=== PATIENT | female | born 1995 | race Caucasian/White ===

== ENCOUNTER → 2020-11-02 | Outpatient (REF) | payer OTHER ==
[2020-11-02 18:17] LABS: HEMATOCRIT 37.6 % (36.0-47.0); HEMOGLOBIN 12.2 g/dl (12.0-15.5); MEAN CORPUSCULAR HEMOGLOBIN 29.1 pg (27.0-33.0); MEAN CORPUSCULAR HGB CONC 32.4 g/dl (32.0-36.5); MEAN CORPUSCULAR VOLUME 89.7 fl (80.0-96.0); PLATELET COUNT, AUTOMATED 242 10^3/uL (150-450); RED BLOOD COUNT 4.19 10^6/uL (4.00-5.40); WHITE BLOOD COUNT 7.5 10^3/uL (4.0-10.0)
[2020-11-02 18:33] LABS: GLUCOSE CHALLENGE TEST 1 HOUR 128 MG/DL (LESS THAN 140)
[2020-11-02 19:29] LABS: HEMOGLOBIN A1c 4.8 %
[2020-11-08 09:45] LABS: HIV 1&2 SCREEN CENTAUR REACTIVE (NEGATIVE)
== END ==
LOC: M PLALAB 13:33
PROVIDERS: ATTEND Advanced Practice Midwife
DX: Z34.91 Encounter for supervision of normal pregnancy, unspecified, first trimester (principal); Z3A.09 9 weeks gestation of pregnancy

== ENCOUNTER → 2020-11-11 | Outpatient (CLI) | payer OTHER | LOC: M PLALAB 14:10 | PROVIDERS: ATTEND Advanced Practice Midwife | DX: Z34.81 Encounter for supervision of other normal pregnancy, first trimester (principal) ==

== ENCOUNTER → 2021-01-20 | Outpatient (CLI) | payer OTHER ==
--- NOTE | 2021-01-20 10:03 | REP ---
INDICATION: ANATOMY. COMPARISON: None. TECHNIQUE: Multiple ultrasonographic images of the gravid uterus. FINDINGS: There is a single intrauterine gestation. position is variable. heart rate is 134 beats per minute. The placenta is anterior with grade 1 maturity. There is no previa. The umbilical cord inserts centrally onto the placenta. There is a three-vessel cord. The cervix measures 5.2 cm length. The composite ultrasound gestational age by the study today is 22 weeks 4 days with an BRENNEN of 05/22/2021. The LMP is unknown. weight is 510 g/1 lb, 1 oz. This is the 77th percentile for 21 weeks 6 days. The following anatomic structures are identified and are unremarkable: Cranium, cavum septum pellucidum, falx, as intracranial ventricles, choroid plexus, cerebellum, cisterna magna, nuchal fold, facial profile, orbits, upper lip, lungs, cardiac rhythm, four-chamber heart, cardiac right left ventricular outflow tracts, diaphragm, stomach, abdominal wall, right and left kidneys, bladder, spine, right and left upper extremities, right left lower extremities, 3 vessel cord. No anomalies are identified. IMPRESSION: Twenty-two week 4 day intrauterine gestation with an BRENNEN of 05/22/2021. No anomalies are identified <Electronically signed by Vladimir Hernandez > 01/20/21 [id number]
== END ==
LOC: M WHC 08:54
PROVIDERS: ATTEND Advanced Practice Midwife
DX: Z34.02 Encounter for supervision of normal first pregnancy, second trimester (principal); Z3A.22 22 weeks gestation of pregnancy

== ENCOUNTER → 2021-02-25 | Outpatient (CLI) | payer OTHER ==
[2021-02-25 10:25] LABS: HEMATOCRIT 37.1 % (36.0-47.0); HEMOGLOBIN 11.9 g/dl (12.0-15.5); MEAN CORPUSCULAR HEMOGLOBIN 28.1 pg (27.0-33.0); MEAN CORPUSCULAR HGB CONC 32.1 g/dl (32.0-36.5); MEAN CORPUSCULAR VOLUME 87.7 fl (80.0-96.0); PLATELET COUNT, AUTOMATED 313 10^3/uL (150-450); RED BLOOD COUNT 4.23 10^6/uL (4.00-5.40); WHITE BLOOD COUNT 12.9 10^3/uL (4.0-10.0)
[2021-02-25 12:33] LABS: GC DNA AMPLIFICATION NEGATIVE (NEGATIVE)
== END ==
LOC: M PLALAB 07:44
PROVIDERS: ATTEND Advanced Practice Midwife
DX: Z34.92 Encounter for supervision of normal pregnancy, unspecified, second trimester (principal); Z3A.22 22 weeks gestation of pregnancy
CPT/HCPCS: 36415; 82950; 85027; 86850; 86900; 86901; 87491; 87591; G0463

== ENCOUNTER → 2021-05-02 | Outpatient (REF) | payer OTHER ==
[~2021-05-02] MED LIST: IBUP80TA PO; OMEP40CA4 PO; OXYC1TAB23 PO; PRENTAB9 PO
== END ==
LOC: M SFHCWAGY 16:51
PROVIDERS: ATTEND Specialist
DX: Z36.85 Encounter for antenatal screening for Streptococcus B (principal); Z3A.00 Weeks of gestation of pregnancy not specified
CPT/HCPCS: 87081; G0463

== ENCOUNTER → 2021-05-06 | Outpatient (CLI) | payer OTHER ==
--- NOTE | 2021-05-06 11:19 | REP ---
INDICATION: GROWTH COMPARISON: 01/20/2021 TECHNIQUE: Transabdominal obstetrical ultrasound with color Doppler evaluation. FINDINGS: Examination demonstrates a single live intrauterine in cephalic presentation. motion is identified by technologist. Placenta is noted anterior and grade 3 without evidence for placenta previa or abruption. Amniotic fluid volume is normal. Cervix measures 4.4 cm in length and appears closed.. Selected gestational age: 37 weeks 0 days with BRENNEN 05/27/2021. Gestational age by current measurements 39 weeks 2 days with BRENNEN 05/11/2021. FHR equals 136 beats per minute. BPD: 9.7 cm at 39 weeks 6 days HC: 34.5 cm at 39 weeks 6 days AC: 36.2 cm at 40 weeks 0 days FL: 7.3 cm at 37 weeks 3 days HL: 6.8 cm at 39 weeks 2 days HC/AC: 0.95 Estimated weight 3804 grams (greater than 97thpercentile). LISA: 15.4 cm Umbilical artery SD ratio: 2.46 IMPRESSION: Single live intrauterine in cephalic presentation demonstrating greater than expected interval growth. <Electronically signed by Armando Baugh > 05/06/21 [id number]
== END ==
LOC: M WHC 10:21
PROVIDERS: ATTEND Specialist
DX: Z34.03 Encounter for supervision of normal first pregnancy, third trimester (principal); Z3A.37 37 weeks gestation of pregnancy

== ENCOUNTER 2021-05-18 07:20 | Outpatient (CLI) | payer OTHER ==
[~2021-05-18] VITALS: Ht 162.6 cm; Wt 125.1 kg
[2021-05-18 07:43] VITALS: BP 137/93
[2021-05-18 08:10] VITALS: BP 121/65
[2021-05-18 08:42] LABS: HEMATOCRIT 36.1 % (36.0-47.0); HEMOGLOBIN 11.4 g/dl (12.0-15.5); MEAN CORPUSCULAR HEMOGLOBIN 25.9 pg (27.0-33.0); MEAN CORPUSCULAR HGB CONC 31.6 g/dl (32.0-36.5); MEAN CORPUSCULAR VOLUME 81.9 fl (80.0-96.0); PLATELET COUNT, AUTOMATED 367 10^3/uL (150-450); RED BLOOD COUNT 4.41 10^6/uL (4.00-5.40); WHITE BLOOD COUNT 13.2 10^3/uL (4.0-10.0)
[2021-05-18] MEDS ORDERED: PRENTAB9 PO (08:47)
[2021-05-18 09:11] LABS: CREATININE,RANDOM URINE 47.2 MG/DL; TOTAL PROTEIN,RANDOM URINE 12.7 MG/DL (0.0-12.0)
[2021-05-18 09:11] LABS: ALT/SGPT 11 U/L (12-78); BILIRUBIN,TOTAL 0.2 MG/DL (0.2-1.0); CREATININE FOR GFR 0.74 MG/DL (0.55-1.30); GLOMERULAR FILTRATION RATE > 60.0 (>60); LDH LACTATE DEHYDROGENASE 125 U/L (84-246); URIC ACID 4.4 MG/DL (2.6-6.0)
== END 2021-05-18 09:32 | disposition home or self-care (01) ==
LOC: M LDO 07:20
PROVIDERS: ATTEND Specialist
DX: O26.893 Other specified pregnancy related conditions, third trimester (principal); O99.213 Obesity complicating pregnancy, third trimester; Z3A.38 38 weeks gestation of pregnancy; Z87.891 Personal history of nicotine dependence
CPT/HCPCS: 36415; 59025; 82247; 82565; 82570; 83615; 84156; 84450; 84460; 84550; 85027; G0378; G0463

== ENCOUNTER 2021-05-20 10:30 | Inpatient (IN) | payer OTHER ==
[~2021-05-20] VITALS: Ht 160 cm; Wt 125.6 kg
[2021-05-20] VITALS (8 sets, daily range): BP systolic 121–141; BP diastolic 62–86
[~2021-05-20 10:30] MED LIST changes: -IBUP80TA PO; -OMEP40CA4 PO; -OXYC1TAB23 PO
[2021-05-20] MEDS ORDERED: OMEP40CA4 PO (10:52)
[2021-05-20] MEDS ORDERED: HOME MED LIST COMPLETE! XX SCH (10:55)
[2021-05-20] MEDS ORDERED: LACTATED RINGER'S 1000 ML IV STA (11:28)
[2021-05-20] MEDS ORDERED: METHYLERGONOVINE MALEATE 0.2 MG/ML VIAL (J2210) IM PRN (11:30)
[2021-05-20] MEDS ORDERED: LIDOCAINE 1% MDV 20ML VIAL INFIL PRN (11:30)
[2021-05-20] MEDS ORDERED: OXYTOCIN DRIP 30 UNITS in IV 1 EA IV PRN (11:30)
--- NOTE | 2021-05-20 12:11 | HPEPDOC ---
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: Human papillomavirus(HPV) Past Medical History Surgical History: Tonsilectomy Family History Significant Family History: Cancer, Heart disease Social History Marital Status: Family situation: Spouse/partner home Psychosocial History: No pertinent psych hx * Smoker: current smoker (vape) Alcohol: Denies Drugs: denies Abuse Violence Screening Have you been hit/kicked/slapp: No Have you been sexually assault: No Imunizations Tdap status: current Allergies Coded Allergies: No Known Allergies (Unverified , 05/18/21) Medications Scheduled Omeprazole (Omeprazole) 40 Mg Capsule.dr, 1 CAP PO DAILY No.137/Iron/Folic Acd ( Vitamin Tablet) 1 Each Tablet, 1 TAB PO DAILY Physical Examination Physical Examination GENERAL: Alert and oriented times three. BREAST: . ABDOMEN: Gravid and non-tender to touch. FETUS: Is vertex (VTX) by sterile vaginal examination (SVE), fetus is vertex (VTX) by Tristian. EFW 9.5-10# HEART RATE: Regular rate and rhythm. LUNGS: Clear to auscultation (CTA). EXTREMITIES: No edema. No clonus. Deep tendon reflexes (DTRs) + 2. Vital Signs/I&O Vital Signs Date Time Temp Pulse Resp B/P (MAP) Pulse Ox O2 Delivery O2 Flow Rate FiO2 05/20/21 10:50 97.0 109 19 141/86 (104) Laboratory Data [facility] Laboratory Tests 2 05/20/21 10:47: Serology Scanned Report Hepatitis B Testing Pertinent Laboratoy Data Blood Type: A+ RBC Antibody Screen: Negative HIV: Negative Hepatitis B: Negative Hepatitis C: Negative Rapid Plasma Reagin: Nonreactive Rubella: Nonreactive Chlamydia/Gonorrhea: Negative Group B Streptococcus: Negative Glucose Tolerance Test: 112 (early gct 128) Anatomy Ultrasound Ultrasound Date: Jan 20, 2021 Placenta Location: Anterior Normal Anatomy: Yes Placenta Previa: No Estimated Weight (grams): 510 (77%) Other Ultrasounds 10/28/2020 dating 9w5d 05/06/2021 growth 3804gm >97%, cephalic Steroid Therapy Steroid Therapy: No Vaginal Examination Dilation: None Effacement: 50% Station: -3 Cervical Consistency: Soft Cervical Position: Posterior Presentation: Cephalic presentation Assessment Heart Rate (FHR): 135 Variability: Moderate Accelerations: Positive Tocometer Contractions: No Assessment/Plan Assessment Shabbir is a 26-year-old (G)1 para (P)0-0-0-0 at 39+0 weeks by 9-week ultrasound. Presents to Labor and Delivery (L&D) for induction of labor due to suspected macrosomia. Reports good movement. Denies LOF, bleeding or UC. EFW 9.5-10#. Rationale for growth sono reviewed. Plan Admit and orient. [employer] and consent. Diet: clear liquids Group B Streptococcus (GBS) negative. Labs and intravenous (IV) per unit protocol. Reviewed concerns for macrosomia Counseled on misoprostol, Pitocin and induction of labor (IOL). Discussed elective depending upon EFW Lactated Ringers (LR): Bolus 500 mL, then saline lock. Will discuss with physician once sono results are back. Anticipate normal spontaneous delivery (). C-S as appropriate. Stacie Schultz CNM May 20, 2021 12:11
[2021-05-20 12:58] LABS: HEMATOCRIT 41.5 % (36.0-47.0); MEAN CORPUSCULAR HEMOGLOBIN 25.5 pg (27.0-33.0); MEAN CORPUSCULAR HGB CONC 31.3 g/dl (32.0-36.5); MEAN CORPUSCULAR VOLUME 81.5 fl (80.0-96.0); PLATELET COUNT, AUTOMATED 421 10^3/uL (150-450); RED BLOOD COUNT 5.09 10^6/uL (4.00-5.40); WHITE BLOOD COUNT 15.6 10^3/uL (4.0-10.0)
--- NOTE | 2021-05-20 13:20 | REP ---
INDICATION: BRENNEN 05/27/2021 Growth. COMPARISON: 05/06/2021. TECHNIQUE: Real-time sonographic evaluation of the gravid uterus performed. FINDINGS: Estimated gestational age is39 weeks 0 days, EDC 05/27/2021. Today's measurements indicate appropriate growth. Presentation: Cephalic Placenta anterior, grade 3, without evidence of placenta previa. heart rate is recorded at 149 beats per minute. Amniotic fluid is subjectively normal. LISA 12.4, normal range 7.2-22.6. Biometry chart: BPD: 99 mm, 40 weeks 5 days, 74th percentile. HC: 351 mm, 40 weeks 6 days, 82nd percentile AC: 364 mm, 40 weeks 2 days, 70th percentile Femur length: 76 mm, 39 weeks 0 days, 51st percentile HC to AC ratio: 0.96, normal range 0.89-1.08. Estimated weight: 4016g, 91st percentile. SD ratio umbilical artery 2.32, normal 1.51-3.29. RI 0.57, normal 0.41-0.69. IMPRESSION: Viable single intrauterine gestation as above. <Electronically signed by Vladimir Hernandez > 05/20/21 [id number]
--- NOTE | 2021-05-20 14:13 | IPNPDOC ---
Text Note Date of Service The patient was seen on 05/20/21. NOTE Progress Sono EFW 4016gm ([id number]). Reviewed with Dr Echeverria. Rec offering induction at this time. Discussed sono with patient and partner. She has decided she's "too worried about having an induction and ending up with ". Requesting primary at this time. Cat I tracing, rare UC Risks/benefits reviewed. Last PO intake 929. Will inform Dr Echeverria. NPO. VS,Fishbone, I+O VS, Fishbone, I+O Laboratory Tests 05/20/21 12:39 Vital Signs Date Time Temp Pulse Resp B/P (MAP) Pulse Ox O2 Delivery O2 Flow Rate FiO2 05/20/21 13:11 98.1 86 18 133/80 (97) Stacie Schultz CNM May 20, 2021 14:13
[2021-05-20] MEDS ORDERED: LR 1,000 ML IV SCH ×3 (14:15→21:20)
[2021-05-20] MEDS ORDERED: ceFAZolin SOD 3 GM IV Place Holder IV ONE (14:20)
[2021-05-20] MEDS ORDERED: ceFAZolin SOD 1 GM in D5W MINI-BAG PLUS 50 ML IV ONE (15:00)
[2021-05-20] MEDS ORDERED: AZITHROMYCIN INJ 500 MG, VIAL MATE ADAPTER 1 EACH in NS 250 ML IV ONE (15:00)
[2021-05-20] MEDS ORDERED: BICITRA 30ML SOLN UDC PO ONE (15:00)
[2021-05-20] MEDS ORDERED: ceFAZolin SOD 2 GM in IV 1 EA IV ONE (15:00)
[2021-05-20] MEDS ORDERED: OXYTOCIN 30 UNITS IN 0.9% NaCl 500ML IV BAG (J2590) As Ordered ONE ×2 (18:57→20:48)
[2021-05-20] MEDS ORDERED: MORPHINE PRES-FREE INJ 10 MG/10 ML VIAL (J2274) As Ordered ONE (19:18)
[2021-05-20] MEDS ORDERED: NALBUPHINE HCL 10 MG/ML AMP (J2300) IV PRN ×2 (19:38→21:20)
[2021-05-20] MEDS ORDERED: ONDANSETRON 4MG/2ML VIAL IV PRN ×3 (19:38→21:20)
[2021-05-20] MEDS ORDERED: METOCLOPRAMIDE INJ 10MG/2ML VIAL (J2765 PER 1) IV PRN (19:38)
[2021-05-20] MEDS ORDERED: diphenhydrAMINE 50MG/ML VIAL (J1200) IV PRN (19:38)
[2021-05-20] MEDS ORDERED: NALOXONE INJ 0.4MG/1ML VIAL (J2310 PER 1MG) IV PRN ×2 (19:38)
[2021-05-20] MEDS ORDERED: PHENYLephrine 500MCG 5ML (100MCG/ML) SYRINGE As Ordered ONE (19:45)
[2021-05-20] MEDS ORDERED: ePHEDrine SULFATE 25 MG/5 ML(5MG/ML) SYRINGE As Ordered ONE (19:45)
[2021-05-20] MEDS ORDERED: ONDANSETRON 4MG/2ML VIAL As Ordered ONE ×2 (20:04→21:32)
[2021-05-20] MEDS ORDERED: dexameTHASONE 4 MG/ML 1ML VIAL (J1100 PER 1MG) As Ordered ONE (20:07)
[2021-05-20] MEDS ORDERED: KETOROLAC 60MG 2ML VIAL As Ordered ONE (20:07)
[2021-05-20] MEDS ORDERED: PERCOCET 5MG/325MG TAB PO PRN (20:40)
[2021-05-20] MEDS ORDERED: SIMETHICONE 80MG CHEW TAB PO PRN (20:40)
[2021-05-20] MEDS ORDERED: OXYTOCIN DRIP 30 UNITS in IV 1 EA IV SCH (20:40)
[2021-05-20] MEDS ORDERED: DOCUSATE SODIUM 100MG CAPSULE PO PRN (20:40)
[2021-05-20] MEDS ORDERED: RHOGAM 300 MCG (1500 IU) INJ (J2790) IM SCH (20:40)
[2021-05-20] MEDS ORDERED: MEASLES,MUMPS,RUBELLA VACCINE INJ (MMR-II) (90707) SC SCH (20:40)
--- NOTE | 2021-05-20 20:43 | ROOPDOC ---
[facility] Report Of Operation Report of Operation DATE OF PROCEDURE: 05/20/21 Report of operation Preoperative diagnosis:39 weeks, suspected macrosomia Postoperative diagnosis: same Procedure: Primary low transverse section. Surgeon: Wiley Mcrae M.D. EBL: 500 ml. Urine output: 100 mL's. Findings: 8 lbs. 12 oz. (3970 g) male , nuchal cord x1. 's 9 and 9 g normal uterus, fallopian tubes, ovaries. Operative summary: Patient taken to the operating room where spinal anesthesia was induced. She was prepped and draped in a sterile fashion in the supine position. A Jones catheter was placed. A Pfannenstiel skin incision was made with scalpel. Fascia was incised and extended bilaterally. The fascia was diss ected from the rectus muscles. The peritoneal cavity was entered. A Mobius retractor was placed. A bladder flap was created. A curvilinear incision was made in lower uterine segment until Clear fluid was noted. The incision was extended manually. The was delivered from the vertex position without difficulty. Cord was doubly clamped and cut. The infant was handed to the [facility] nurses. The placenta was expressed. Uterus was closed with O-Vicryl in a running locked fashion. A second imbricating layer of Vicryl was placed. Peritoneum was closed with 2-0 Vicryl a running fashion. Fascia was closed with 0 Vicryl in running fashion. Skin was closed 4-0 Monocryl subcuticular sutures. Sponge, instrument and needle counts were correct. WILEY MCRAE MD May 20, 2021 20:43
[2021-05-20] MEDS ORDERED: oxyCODONE 5MG TAB PO PRN (21:20)
[2021-05-20] MEDS ORDERED: MEPERIDINE INJ 25 MG/ML VIAL (J2175) IV PRN (21:20)
[2021-05-20] MEDS ORDERED: fentaNYL 100 MCG/2 ML INJECTION (J3010) IV PRN (21:20)
[2021-05-20] MEDS ORDERED: HYDROMORPHONE HCL 0.5 MG/ 0.5 ML SYRINGE (J1170 PER 1) IV PRN (21:20)
[2021-05-20] MEDS: PRENATAL VITAMINS CHEWABLE TABLET PO SCH (23:16)
[2021-05-21] VITALS (8 sets, daily range): BP systolic 107–133; BP diastolic 54–70
[2021-05-21] MEDS: PERCOCET 5MG/325MG TAB PO PRN ×2 (00:15→23:40)
[2021-05-21] MEDS: KETOROLAC 30 MG/ML 1ML VIAL IV SCH ×3 (05:23→16:36)
[2021-05-21 08:01] LABS: HEMATOCRIT 31.6 % (36.0-47.0); MEAN CORPUSCULAR HEMOGLOBIN 25.7 pg (27.0-33.0); MEAN CORPUSCULAR VOLUME 82.7 fl (80.0-96.0); PLATELET COUNT, AUTOMATED 354 10^3/uL (150-450); RED BLOOD COUNT 3.82 10^6/uL (4.00-5.40)
[2021-05-21 08:02] LABS: HEMOGLOBIN 9.8 g/dl (12.0-15.5)
[2021-05-21] MEDS: PRENATAL VITAMINS CHEWABLE TABLET PO SCH (09:55)
--- NOTE | 2021-05-21 11:05 | IPNPDOC ---
Text Note Date of Service The patient was seen on 05/21/21. NOTE S: No complaints O: AVSS NAD Abd: NT, dressing C/D/I, FF ext, NT A/P 26 yo POD#1 s/p section Routine post op care VS,Fishbone, I+O VS, Fishbone, I+O Laboratory Tests 05/20/21 12:39 05/21/21 07:38 Vital Signs Date Time Temp Pulse Resp B/P (MAP) Pulse Ox O2 Delivery O2 Flow Rate FiO2 05/21/21 10:12 96.6 103 18 118/64 (82) 96 Room Air I&O- Last 24 Hours up to 6 AM 05/21/21 06:00 Intake Total 2255 ml Output Total 750 ml Balance 1505 ml WILEY MCRAE MD May 21, 2021 11:05
[2021-05-21] MEDS: IBUPROFEN 800 MG TAB PO SCH (23:39)
[2021-05-22 02:00] VITALS: BP 115/55
[2021-05-22] MEDS: PERCOCET 5MG/325MG TAB PO PRN (05:40)
[2021-05-22 06:00] VITALS: BP 117/56
[2021-05-22] MEDS: PRENATAL VITAMINS CHEWABLE TABLET PO SCH (08:20)
[2021-05-22] MEDS: IBUPROFEN 800 MG TAB PO SCH (08:20)
[2021-05-22 10:00] VITALS: BP 125/59
[2021-05-22] MEDS ORDERED: IBUP80TA PO (11:23)
[2021-05-22] MEDS ORDERED: OXYC1TAB23 PO (11:23)
--- NOTE | 2021-05-22 11:30 | DS.PDOC ---
Discharge Summary General Date of Admission May 20, 2021 at 10:30 Date of Discharge May 22, 2021 Discharge Summary PROCEDURES PERFORMED DURING STAY: section. ADMITTING DIAGNOSES: 1. 39 weeks gestation, suspected macrosomia. DISCHARGE DIAGNOSES: 1. Same. COMPLICATIONS/CHIEF COMPLAINT: Iol For Macrosomia. HISTORY OF PRESENT ILLNESS: 26-year-old female at 39-0/7 weeks gestation presents for induction of labor. HOSPITAL COURSE: 26-year-old female at 39-0/7 weeks gestation presents for induction of labor. She had a suspected large for gestational age based upon previous ultrasound. An ultrasound was performed on the day of admission which revealed an estimated weight greater than 4000 g. While this is not a clinical contraindication to labor induction the patient was very concerned about the risk of vaginal delivery given a relatively large infant. She opted for primary section as a way to decrease this risk. On May 20, 2021 she underwent primary low transverse section 40 pound 12 ounce male . There were no complications. Her postoperative course was unremarkable. She had adequate return of bladder bowel function. She was deemed stable for discharge on postop day #2. DISCHARGE MEDICATIONS: Please see below. ALLERGIES: Please see below. PHYSICAL EXAMINATION ON DISCHARGE: VITAL SIGNS: Please see below. GENERAL: NAD HEENT: NCAT CARDIOVASCULAR EXAMINATION: RRR RESPIRATORY EXAMINATION: CTA ABDOMINAL EXAMINATION: Nontender, dressing clean dry intact, fundus firm EXTREMITIES: NT LABORATORY DATA: Please see below. PROGNOSIS: Good ACTIVITY: As tolerated. DIET: Regular DISCHARGE PLAN: Home DISCHARGE INSTRUCTIONS: 1. Discharge home 2. Instructions reviewed 3. Pain management ordered. DISCHARGE CONDITION: Stable. TIME SPENT ON DISCHARGE: 10 minutes. Vital Signs/I&Os Vital Signs Date Time Temp Pulse Resp B/P (MAP) Pulse Ox O2 Delivery O2 Flow Rate FiO2 05/22/21 10:00 98.0 85 18 125/59 (81) 100 Room Air I&O- Last 24 Hours up to 6 AM 05/22/21 06:00 Intake Total 300 ml Output Total 800 ml Balance -500 ml Discharge Medications Scheduled Ibuprofen (Ibuprofen) 800 Mg Tablet, 800 MG PO Q8H Omeprazole (Omeprazole) 40 Mg Capsule.dr, 1 CAP PO DAILY, (Reported) No.137/Iron/Folic Acd ( Vitamin Tablet) 1 Each Tablet, 1 TAB PO DAILY, (Reported) Scheduled PRN Oxycodone HCl/Acetaminophen (Oxycodone-Acetaminophen 5-325) 1 Each Tablet, 1 TAB PO TIDP PRN for pain Allergies Coded Allergies: No Known Allergies (Unverified , 05/18/21) WILEY MCRAE MD May 22, 2021 11:30
== END 2021-05-22 13:00 | disposition home or self-care (01) | DRG 773 ==
LOC: M LDI 10:30 → M OBS 22:30
PROVIDERS: ADMIT Advanced Practice Midwife; ATTEND Advanced Practice Midwife
PROC: 10D00Z1 Extraction of Products of Conception, Low, Open Approach (ICD-10-PCS; principal; 2021-05-20 18:30)
DX: O36.60X0 Maternal care for excessive fetal growth, unspecified trimester, not applicable or unspecified (principal); Z37.0 Single live birth; Z3A.39 39 weeks gestation of pregnancy